=== PATIENT | female | born 1945 | race Caucasian/White ===

== ENCOUNTER 2019-02-22 23:18 | Emergency (ER) | payer MEDICARE, SELFPAY ==
[2019-02-22 23:18] VITALS: BP 156/76; PULSE 63; RESP 18; TEMP 36.5; O2SAT 99; BMI 26.5
--- NOTE | 2019-02-22 23:31 | DI.RAD.S_ITS ---
PROCEDURE: XR CHEST 1V INDICATIONS: chest pain TECHNIQUE: One view of the chest was acquired. COMPARISON: None. FINDINGS: Surgical changes and devices: Right-sided cardiac generator device with right atrial lead and right ventricular AICD lead. Lungs and pleura: Diffuse prominence of the interstitial markings bilaterally which may be due to emphysematous change. No focal consolidation seen him. No pleural effusions or pneumothorax. Mediastinum: Mediastinal contours are within normal limits. Calcified aortic arch. Heart size is enlarged. Bones and chest wall: No suspicious bony lesions. Overlying soft tissues appear unremarkable. IMPRESSION: No acute cardiopulmonary abnormality. Cardiomegaly. Dictated by: Jayy Navarro M.D. on 02/23/2019 at 7:19 Approved by: Jayy Navarro M.D. on 02/23/2019 at 7:23
[2019-02-22 23:42] LABS: Add Manual Diff / Slide Review NO; Basophils Absolute Auto 100 /uL (0-100); Basophils Percent Auto 0.9 % (0-2); Eosinophils Absolute Auto 200 /uL (0-450); Eosinophils Percent Auto 3.1 % (2-4); Hematocrit 43.4 % (36-46); Hemoglobin 14.3 g/dL (12.0-16.0); Lymphocytes Absolute Auto 2200 /uL (1100-4500); Lymphocytes Percent Auto 29.1 % (25-40); Mean Corpuscular HGB Conc 32.8 % (30-36); Mean Corpuscular Volume 85.2 fL (80-100); Monocytes Absolute Auto 700 /uL (0-900); Monocytes Percent Auto 8.9 % (3-14); Neutrophils Absolute Auto 4400 /uL (1500-7000); Platelet Count 230 X10^3/uL (150-400); Red Blood Cell Count 5.09 X10^6/uL (4.0-5.2); White Blood Cell Count 7.6 X10^3/uL (4.5-11.0)
[2019-02-22 23:47] LABS: INR 2.9 (0.9-1.3); Prothrombin Time 34.1 SECONDS (10.1-12.7)
[2019-02-22 23:50] LABS: PTT Partial Thromboplastin Tim 62 SECONDS (26.4-36.2)
[2019-02-22 23:51] LABS: Alanine Aminotransferase 20 IU/L (9-52); Albumin 4.3 g/dL (3.5-5.0); Albumin Globulin Ratio 1.3 (1.0-2.8); Alkaline Phosphatase 111 U/L (38-126); Aspartate Aminotransferase 39 IU/L (14-36); BUN Creatinine Ratio 22.9 (6-22); Bilirubin Total 0.6 mg/dL (0.2-1.3); Blood Urea Nitrogen 16 mg/dL (7-17); Calcium 9.1 mg/dL (8.4-10.2); Carbon Dioxide 29 mmol/L (22-32); Chloride 105 mmol/L (98-107); Creatine Kinase 55 U/L (30-135); Estimated Glomerular Filt Rate > 60.0 mL/min (>60); Globulin 3.2 g/dL (1.7-4.1); Glucose 112 mg/dL (80-110); HEMOLYSIS 23 (0-50); Lipase 108 U/L (23-300); Potassium 3.7 mmol/L (3.4-5.1); Sodium 141 mmol/L (137-145); Total Protein 7.5 g/dL (6.3-8.2)
--- NOTE | 2019-02-22 23:51 | ED_ITS ---
HPI - Chest Pain General Chief Complaint: Chest Pain Stated Complaint: Heart feels out of rhythm Time Seen by Provider: 02/22/19 23:51 Source: patient Mode of arrival: ambulatory Limitations: no limitations History of Present Illness HPI narrative: The patient has a history of cardiac ablation. She initially stated that she had very frequent PVCs. However she also some time had a period of V-tach. She describes been excessively IV hydrated following surgery, she may have developed cardiomyopathy. I do not have those records. She is now complaining of frequent palpitations for the last 3 days. Palpitations are intermittent. Palpitations are also associated with left upper back pain. She has only left upper back pain when she is having the palpitations. She has no difficulty breathing, no orthopnea. She has no history of coronary artery disease. Her coronary arteries have been declared clear when been evaluated for the ablation. About 10:00 p.m. tonight she was having frequent, very uncomfort able PVCs. She took Cardizem, as previously instructed by her in service education teacher. She repeated the dose. She is having intermittent PVCs now, but feeling better. She denies no recent illness. She is traveling. She is on a normal diet, stay well hydrated. She has had no recent medication changes. In addition to the Cardizem she also takes Metoprolol and Coumadin. The Cardizem is as needed, and utilized today without other recent utilization of the medication. The metoprolol dose was recently doubled from 25-50 mg daily, she reports not feeling well since that dose was increased. Related Data Home Medications Medication Instructions Recorded Confirmed diltiazem HCl [Cardizem] 60 mg PO PRN PRN 02/23/19 02/23/19 metoprolol tartrate 25 mg PO BID 02/23/19 02/23/19 warfarin 2.5 mg PO 2XW 02/23/19 02/23/19 warfarin 5 mg PO 5XW 02/23/19 02/23/19 Review of Systems Review of Systems ROS Unobtainable: All systems reviewed & are unremarkable except as noted in HPI and below Constitutional Denies chills, Denies fever(s), Denies lethargy and Denies weakness Comments: No recent illness ENT Ears, Nose, Mouth, and Throat: Denies vertigo, Denies dizziness, Denies neck pain and Denies sore throat Cardiovascular Denies chest pain, Denies irregular heart rhythm, Denies lightheadedness, Reports palpitations and Denies dyspnea Respiratory Denies cough, Denies dyspnea and Denies wheezing Gastrointestinal Gastrointestinal: Denies abdominal pain, Denies diarrhea, Denies nausea and Denies vomiting Musculoskeletal Reports back pain and Denies neck pain Integumentary/Breasts Denies erythema, Denies rash and Denies wounds Neurologic Denies vertigo, Denies dizziness and Denies weakness Endocrine Reports palpitations Allergic/Immunologic Denies wheezing [facility] Medical History (Updated 02/23/19 @ 02:07 by Kody Meehan MD) Arrhythmia (Acute) Pacemaker (Acute) Social History (Updated 02/23/19 @ 02:01 by Kody Meehan MD) Smoking Status: Never smoker Exam Initial Vital Signs Initial Vital Signs: Vital Signs Temperature 97.7 F 02/22/19 23:18 Pulse Rate 63 02/22/19 23:18 Respiratory Rate 18 02/22/19 23:18 Blood Pressure 156/76 H 02/22/19 23:18 Pulse Oximetry 99 02/22/19 23:18 Const General: cooperative and well developed Nutritional Appearance: well nourished Orientation: alert, awake, oriented x3 and not confused HENMT Head: normal to inspection Neck Neck: No JVD Other: Normal carotid pulses bilaterally. No bruits. Chest Other: Right upper chest pacemaker. Resp Effort & Inspection: normal respiratory effort Auscultation: clear to auscultation bilaterally Cardio Rate: regular rate Rhythm: regular rhythm Heart Sounds: S1 normal, S2 normal, no murmurs and no rubs Other: Occasional PVC. GI Inspection: non-distended Palpation: soft, no hepatosplenomegaly, No guarding and No tender Auscultation: normal bowel sounds Back/Spine/Pelvis Back: No CVA tenderness Cervical Spine: cervical ROM normal Thoracic/Lumbar Spine: thoracic and lumbar spine normal to inspection Skin General: no rashes or lesions noted Neuro General: alert, oriented x3, gait normal and no focal motor deficits Speech: speech normal Extrem General: full ROM, no clubbing, cyanosis or edema and no calf tenderness Psych Appearance: well kempt Mental Status: mental status grossly normal Attitude: cooperative Thought Content: normal Course Course Narrative: The EKG shows sinus Ricardo with a first-degree AV block. Telemetry shows occasional PVCs. The patient took Cardizem x2 at home prior to coming in. The bradycardia has been stable since been here. The number PVCs diminishes with breast. There are no significant clinical findings with the EKG, chest x-ray and lab evaluation. She is referred back to her doctor to discuss palpitations /PVCs. I suggested her in service education teacher may want to query the pacemaker. Orders Ordered: ED Orders 02/22/19 23:25 Complete Blood Count AUTO DIFF Stat Comprehensive Metabolic Panel Stat Lipase Stat Partial Thromboplastin Time Stat Prothrombin Time INR Stat Troponin & CK Cardiac Panel Stat 02/22/19 23:31 XR chest 1V Stat EKG-12 Lead Stat 02/23/19 01:43 Magnesium Stat Vital Signs - 8 hr 02/22/19 23:18 02/23/19 00:00 02/23/19 00:30 Temperature 97.7 F Pulse Rate 63 65 59 L Respiratory Rate 18 14 19 Blood Pressure 156/76 H Blood Pressure [Right Arm] 149/84 H 127/68 Pulse Oximetry 99 97 96 02/23/19 01:00 02/23/19 01:30 Temperature Pulse Rate 57 L 56 L Respiratory Rate 10 L 14 Blood Pressure Blood Pressure [Right Arm] 121/68 127/77 Pulse Oximetry 96 94 MDM - Chest Pain Lab Data Result diagrams: 02/22/19 23:25 02/22/19 23:25 Lab Results 02/22/19 02/22/19 02/22/19 Range/Units 23:25 23:25 23:25 WBC 7.6 (4.5-11.0) X10^3/uL RBC 5.09 (4.0-5.2) X10^6/uL Hgb 14.3 (12.0-16.0) g/dL Hct 43.4 (36-46) % MCV 85.2 (80-100) fL MCH 28.0 (26-34) PG MCHC 32.8 (30-36) % RDW 16.0 H (11.6-14.8) % Plt Count 230 (150-400) X10^3/uL Neut % (Auto) 58.0 (50-75) % Lymph % (Auto) 29.1 (25-40) % [place] % (Auto) 8.9 (3-14) % Eos % (Auto) 3.1 (2-4) % Baso % (Auto) 0.9 (0-2) % Neut # (Auto) 4400 (5998-4649) /uL Lymph # (Auto) 2200 (6852-9992) /uL [place] # (Auto) 700 (0-900) /uL Eos # (Auto) 200 (0-450) /uL Baso # (Auto) 100 (0-100) /uL PT 34.1 H (10.1-12.7) SECONDS INR 2.9 H (0.9-1.3) APTT 62 H (26.4-36.2) SECONDS Sodium 141 (137-145) mmol/L Potassium 3.7 (3.4-5.1) mmol/L Chloride 105 (98-107) mmol/L Carbon Dioxide 29 (22-32) mmol/L BUN 16 (7-17) mg/dL Creatinine 0.70 (0.52-1.04) mg/dL Estimated GFR > 60.0 (>60) mL/min BUN/Creatinine Ratio 22.9 H (6-22) Glucose 112 H (80-110) mg/dL Calcium 9.1 (8.4-10.2) mg/dL Magnesium (1.6-2.3) mg/dL Total Bilirubin 0.6 (0.2-1.3) mg/dL AST 39 H (14-36) IU/L ALT 20 (9-52) IU/L Alkaline Phosphatase 111 (38-126) U/L Total Creatine Kinase 55 (30-135) U/L CK-MB (CK-2) TNP CK-MB (CK-2) Rel Index TNP Troponin I < 0.012 (0.01-0.034) ng/mL Total Protein 7.5 (6.3-8.2) g/dL Albumin 4.3 (3.5-5.0) g/dL Globulin 3.2 (1.7-4.1) g/dL Albumin/Globulin Ratio 1.3 (1.0-2.8) Lipase 108 (23-300) U/L 02/23/19 Range/Units 01:43 WBC (4.5-11.0) X10^3/uL RBC (4.0-5.2) X10^6/uL Hgb (12.0-16.0) g/dL Hct (36-46) % MCV (80-100) fL MCH (26-34) PG MCHC (30-36) % RDW (11.6-14.8) % Plt Count (150-400) X10^3/uL Neut % (Auto) (50-75) % Lymph % (Auto) (25-40) % [place] % (Auto) (3-14) % Eos % (Auto) (2-4) % Baso % (Auto) (0-2) % Neut # (Auto) (1588-5488) /uL Lymph # (Auto) (1243-3951) /uL [place] # (Auto) (0-900) /uL Eos # (Auto) (0-450) /uL Baso # (Auto) (0-100) /uL PT (10.1-12.7) SECONDS INR (0.9-1.3) APTT (26.4-36.2) SECONDS Sodium (137-145) mmol/L Potassium (3.4-5.1) mmol/L Chloride (98-107) mmol/L Carbon Dioxide (22-32) mmol/L BUN (7-17) mg/dL Creatinine (0.52-1.04) mg/dL Estimated GFR (>60) mL/min BUN/Creatinine Ratio (6-22) Glucose (80-110) mg/dL Calcium (8.4-10.2) mg/dL Magnesium 2.1 (1.6-2.3) mg/dL Total Bilirubin (0.2-1.3) mg/dL AST (14-36) IU/L ALT (9-52) IU/L Alkaline Phosphatase (38-126) U/L Total Creatine Kinase (30-135) U/L CK-MB (CK-2) CK-MB (CK-2) Rel Index Troponin I (0.01-0.034) ng/mL Total Protein (6.3-8.2) g/dL Albumin (3.5-5.0) g/dL Globulin (1.7-4.1) g/dL Albumin/Globulin Ratio (1.0-2.8) Lipase (23-300) U/L Imaging Data Chest x-ray: My impression: Right-sided pacemaker. No acute cardiopulmonary process. ECG Data Attestation: I personally reviewed and interpreted this ECG as follows: (Sinus bradycardia rate 55 bpm. First degree av block. No normal intervals. No acute ST T wave changes. No ectopy.) Discharge Plan Departure Patient Disposition: Home Clinical Impression: PVC's (premature ventricular contractions) Instructions: Premature Ventricular Beats Activity Restrictions/Additional Instructions: Continue with her current medication regimen. Your electrolytes are intact. There are no significant abnormalities on the EKG or chest x-ray. Maintain good hydration. Consult with your in service education teacher tomorrow. Your doctor may want to arrange to have the pacemaker queried. You should discuss your recent experience with metoprolol and Cardizem with your in service education teacher. Return the ER if you developed increasing chest discomfort, weakness or dizziness. Prescriptions: No Action metoprolol tartrate 25 mg Tablet 25 mg PO BID RF: 0 warfarin 2.5 mg Tablet 2.5 mg PO 2XW RF: 0 warfarin 5 mg Tablet 5 mg PO 5XW RF: 0 diltiazem HCl [Cardizem] 60 mg Tablet 60 mg PO PRN PRN (Reason: Atrial Fibrillation) RF: 0
[2019-02-23] VITALS: BP 149/84; PULSE 65; RESP 14; O2SAT 97
[2019-02-23 00:03] LABS: Troponin I < 0.012 ng/mL (0.01-0.034)
[2019-02-23 00:30] VITALS: BP 127/68; PULSE 59; RESP 19; O2SAT 96
[2019-02-23 01:00] VITALS: BP 121/68; PULSE 57; RESP 10; O2SAT 96
[2019-02-23 01:30] VITALS: BP 127/77; PULSE 56; RESP 14; O2SAT 94
[2019-02-23 02:00] LABS: Magnesium 2.1 mg/dL (1.6-2.3)
== END 2019-02-23 02:17 | disposition home or self-care (01) ==
PROVIDERS: Emergency Provider Emergency Medicine
DX: I49.3 Ventricular premature depolarization (principal); Z95.0 Presence of cardiac pacemaker
CPT/HCPCS: 36591; 71045; 80053; 82550; 83690; 83735; 84484; 85025; 85610; 85730; 93005; 99283; 99285